=== PATIENT | female | born 1975 | race Asian ===

== ENCOUNTER 2018-09-17 20:40 | Emergency (ER) | payer SELFPAY ==
[~2018-09-17] VITALS: Ht 165.1 cm; Wt 88.5 kg
[2018-09-17 20:49] VITALS: Ht 165.1 cm; Wt 88.5 kg
[2018-09-17 21:55] VITALS: BP 147/89
== END 2018-09-17 22:46 | disposition home or self-care (01) ==
LOC: ED 20:40
DX: M54.42 Lumbago with sciatica, left side (principal); M51.9 Unspecified thoracic, thoracolumbar and lumbosacral intervertebral disc disorder; E11.9 Type 2 diabetes mellitus without complications
CPT/HCPCS: J1885; J2270; J2405